=== PATIENT | female | born 2000 | race African-American/Black ===

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

== ENCOUNTER 2021-01-03 19:31 | Emergency (ER) | payer OTHER | END 2021-01-03 20:43 | disposition home or self-care (01) | LOC: ERS 19:31 | DX: B35.4 Tinea corporis (principal) | CPT/HCPCS: 99282 ==

== ENCOUNTER 2021-02-06 19:49 | Emergency (ER) | payer MEDICAID, OTHER ==
[2021-02-06] MEDS ORDERED: Dexamethasone 10 MG/ML VIAL ONE (20:47)
[2021-02-07 11:51] LABS: SARS-CoV-2 PCR by NAA Not Detected (NotDetected)
== END 2021-02-06 20:59 | disposition home or self-care (01) ==
LOC: ERS 19:49
DX: B34.9 Viral infection, unspecified (principal); Z20.822 Contact with and (suspected) exposure to COVID-19
CPT/HCPCS: 87081; 87430; 99283; J1100; U0003; U0005

== ENCOUNTER 2021-08-30 16:20 | Emergency (ER) | payer OTHER ==
[2021-08-30] MEDS ORDERED: cefTRIAXone\\ROCEPHIN 500 MG VIAL ONE (16:35)
[2021-08-30] MEDS ORDERED: Lidocaine 1% PF 5 ML VIAL ONE (16:36)
[2021-08-30 16:55] LABS: Bilirubin Negative (Negative); Blood, Urine Negative (Negative); Clarity Clear (Clear); Glucose, Urine (Dipstick) Normal (Negative); Ketone, Urine 60 mg/dL (Negative); Leukocyte Negative Leu/uL (Negative); Nitrite Negative (Negative); Protein, Urine (Dipstick) Negative (Neg-Trace); Specific Gravity, Urine 1.018 (1.002-1.036); Urobilinogen Normal mg/dL (Less than 2)
[2021-08-30 16:57] LABS: Pregnancy Test - Urine (BHCG) Negative (Negative); Pregu Control Background? CLEAR/WHITE (CLR/WHITE); Pregu Control Bar Appear? YES (CONTROL BAR); Specific Gravity 1.018 (1.002-1.036)
[2021-08-31 11:40] LABS: Chlam.trachomatis by PCR,Urine Not Detected (NotDetected)
== END 2021-08-30 17:26 | disposition home or self-care (01) ==
LOC: ERS 16:20
DX: A64 Unspecified sexually transmitted disease (principal)
CPT/HCPCS: 81003; 81025; 87491; 87591; 96372; 99283; J0696

== ENCOUNTER 2021-10-20 17:00 | Emergency (ER) | payer OTHER ==
[2021-10-20 18:50] LABS: Bilirubin Negative (Negative); Blood, Urine Negative (Negative); Clarity Clear (Clear); Glucose, Urine (Dipstick) Normal (Negative); Ketone, Urine Trace mg/dL (Negative); Leukocyte Negative Leu/uL (Negative); Nitrite Negative (Negative); Protein, Urine (Dipstick) Negative (Neg-Trace); Specific Gravity, Urine 1.019 (1.002-1.036); Urobilinogen Normal mg/dL (Less than 2); pH, Urine 5.5 (5.0-9.0)
[2021-10-20 18:51] LABS: Pregnancy Test - Urine (BHCG) Negative (Negative); Pregu Control Background? CLEAR/WHITE (CLR/WHITE); Pregu Control Bar Appear? YES (CONTROL BAR); Specific Gravity 1.019 (1.002-1.036)
[2021-10-20] MEDS ORDERED: cefTRIAXone\\ROCEPHIN 1 GM VIAL ONE (19:12)
[2021-10-20] MEDS ORDERED: Azithromycin 250 MG TAB ONE (19:12)
[2021-10-20] MEDS ORDERED: Lidocaine 1% PF 5 ML VIAL ONE (19:14)
== END 2021-10-20 19:43 | disposition home or self-care (01) ==
LOC: ERS 17:00
DX: N73.9 Female pelvic inflammatory disease, unspecified (principal)
CPT/HCPCS: 81003; 81025; 87081; 96372; 99284; J0696

== ENCOUNTER 2022-11-15 19:46 | Emergency (ER) | payer MEDICAID, OTHER | END 2022-11-15 20:29 | disposition home or self-care (01) | LOC: ERS 19:46 | DX: U07.1 COVID-19 (principal) | CPT/HCPCS: 87635; 99283 ==

== ENCOUNTER 2022-12-08 17:46 | Emergency (ER) | payer OTHER ==
[2022-12-08 18:35] LABS: Bacteria/HPF None Seen HPF (None Seen); Bilirubin Negative (Negative); Blood, Urine Negative (Negative); CAUTI Indications for Culture Dysuria,urgency,freq; Clarity Clear (Clear); Glucose, Urine (Dipstick) Normal (Negative); Ketone, Urine Negative (Negative); Leukocyte Negative Leu/uL (Negative); Nitrite Negative (Negative); Protein, Urine (Dipstick) Negative (Neg-Trace); RBC/HPF 0-3 HPF (0-3); Specific Gravity, Urine 1.021 (1.002-1.036); Urobilinogen Normal mg/dL (Less than 2); WBC/HPF 0-3 HPF (0-3); pH, Urine 5.5 (5.0-9.0)
[2022-12-08 18:37] LABS: Urine Culture Reflex No No
[2022-12-08 20:22] LABS: Specific Gravity 1.021 (1.002-1.036)
[2022-12-08 20:23] LABS: Pregnancy Test - Urine (BHCG) Negative (Negative); Pregu Control Background? CLEAR/WHITE (CLR/WHITE); Pregu Control Bar Appear? YES (CONTROL BAR)
[2022-12-12 07:21] LABS: Chlamydia by PCR, Vaginal Swab *Indeterminate (NotDetected); GC by PCR, Vaginal Swab *Indeterminate (NotDetected)
== END 2022-12-08 21:50 | disposition home or self-care (01) ==
LOC: ERS 17:46
DX: N83.201 Unspecified ovarian cyst, right side (principal)
CPT/HCPCS: 76856; 81001; 81025; 87480; 87491; 87510; 87591; 87660

== ENCOUNTER 2022-12-19 18:46 | Emergency (ER) | payer OTHER ==
[2022-12-19 20:15] LABS: #Eosinphils 0.2 thou/uL (0.0-0.7); #Monocytes 0.6 thou/uL (0.11-0.59); #Neutrophils 3.2 thou/uL (1.40-6.50); %Basophils 0.6 % (0.0-1.0); %Eosinophils 3.4 % (0.0-10.0); %Lymphocytes 37.9 % (21.0-51.0); %Monocytes 9.1 % (0.0-10.0); %Neutrophils 48.7 % (42.0-75.0); Hematocrit 38.8 % (36.0-47.0); Hemoglobin 12.8 g/dL (12.0-16.0); Mean Corpuscular Hemoglobin 26.7 pg (27.0-31.0); Mean Corpuscular Volume 80.8 fl (78.0-98.0); Mean Platelet Volume 10.7 fL (7.4-10.4); Platelet Count 231 10x3/uL (130-400); RBC Distribution Width 14.5 % (11.5-14.5); White Blood Cell (WBC) Count 6.7 10x3/uL (4.8-10.8)
[2022-12-19 20:41] LABS: ALT (SGPT) 23 U/L (8-55); AST (SGOT) 32 U/L (5-34); Albumin 3.9 g/dL (3.5-5.0); Alkaline Phosphatase 60 U/L (40-110); Anion Gap 10 mmol/L (10-20); BUN (Urea Nitrogen) 8 mg/dL (7.0-18.7); Bilirubin, Total 0.3 mg/dL (0.2-1.2); Calc. Creatinine Clearance 0 mL/min (70-130); Calcium 8.9 mg/dL (7.8-10.44); Carbon Dioxide 22 mmol/L (22-29); Chloride 107 mmol/L (98-107); Estimated GFR 109; Globulin 3.1 g/dL (2.4-3.5); Glucose 84 mg/dL (70-105); Potassium 4.4 mmol/L (3.5-5.1); Sodium 135 mmol/L (136-145)
[2022-12-20 00:20] LABS: Bacteria/HPF None Seen HPF (None Seen); Bilirubin Negative (Negative); Blood, Urine Negative (Negative); CAUTI Indications for Culture Dysuria,urgency,freq; Clarity Clear (Clear); Glucose, Urine (Dipstick) Normal (Negative); Ketone, Urine 20 mg/dL (Negative); Leukocyte Negative Leu/uL (Negative); Nitrite Negative (Negative); Protein, Urine (Dipstick) Negative (Neg-Trace); RBC/HPF 0-3 HPF (0-3); Specific Gravity, Urine 1.015 (1.002-1.036); Urobilinogen Normal mg/dL (Less than 2); WBC/HPF 0-3 HPF (0-3)
[2022-12-20 00:39] LABS: Pregnancy Test - Urine (BHCG) Negative (Negative); Pregu Control Background? CLEAR/WHITE (CLR/WHITE); Pregu Control Bar Appear? YES (CONTROL BAR); Specific Gravity 1.015 (1.002-1.036); Urine Culture Reflex No No
[2022-12-20] MEDS ORDERED: Lidocaine 1% PF 5 ML VIAL ONE (02:16)
[2022-12-20] MEDS ORDERED: cefTRIAXone (ROCEPHIN) 1 GM VIAL ONE (02:16)
[2022-12-20 22:34] LABS: Chlam.trachomatis by PCR,Urine Not Detected (NotDetected); GC N.gonorrhoeae PCR,UrineVOID Not Detected (NotDetected)
== END 2022-12-20 02:19 | disposition home or self-care (01) ==
LOC: ERS 18:46
DX: N83.201 Unspecified ovarian cyst, right side (principal)
CPT/HCPCS: 36415; 76856; 80053; 81001; 81025; 85025; 87491; 87591; 96372; J0696

== ENCOUNTER 2023-03-21 15:05 | Emergency (ER) | payer OTHER | END 2023-03-21 17:42 | disposition home or self-care (01) | LOC: ERS 15:05 | DX: S60.042A Contusion of left ring finger without damage to nail, initial encounter (principal); W23.0XXA Caught, crushed, jammed, or pinched between moving objects, initial encounter ==

== ENCOUNTER 2023-04-25 19:39 | Emergency (ER) | payer OTHER | END 2023-04-25 20:05 | disposition home or self-care (01) | LOC: ERS 19:39 | DX: Z00.00 Encounter for general adult medical examination without abnormal findings (principal) | CPT/HCPCS: 99283 ==

== ENCOUNTER 2023-06-13 20:05 | Emergency (ER) | payer OTHER | END 2023-06-13 21:50 | disposition home or self-care (01) | LOC: ERS 20:05 | DX: J02.9 Acute pharyngitis, unspecified (principal) | CPT/HCPCS: 87081; 87430; 99283 ==

== ENCOUNTER 2023-10-05 10:47 | Emergency (ER) | payer OTHER ==
[2023-10-05 11:44] LABS: #Basophils 0.04 10x3/uL (0.0-0.2); %Basophils 0.7 % (0.0-1.0); %Eosinophils 1.8 % (0.0-10.0); %Lymphocytes 32.7 % (21.0-51.0); %Monocytes 10.5 % (0.0-10.0); %Neutrophils 54.1 % (42.0-75.0); Hematocrit 40.4 % (36.0-47.0); Hemoglobin 13.7 g/dL (12.0-16.0); Mean Corpuscular HGB CONC 33.9 g/dL (32.0-36.0); Mean Corpuscular Hemoglobin 26.9 pg (27.0-31.0); Mean Corpuscular Volume 79.4 fL (78.0-98.0); Mean Platelet Volume 10.3 fL (7.4-10.4); Platelet Count 340 10x3/uL (130-400); RBC Distribution Width 13.5 % (11.5-14.5); Red Blood Cell (RBC) Count 5.09 mill/uL (4.20-5.40)
[2023-10-05 12:00] LABS: ALT (SGPT) 21 U/L (8-55); AST (SGOT) 21 U/L (5-34); Albumin 3.9 g/dL (3.5-5.0); Alkaline Phosphatase 69 U/L (40-110); Anion Gap 12 mmol/L (10-20); BUN (Urea Nitrogen) 10 mg/dL (7.0-18.7); Bilirubin, Total 0.8 mg/dL (0.2-1.2); Calc. Creatinine Clearance 0 mL/min (70-130); Calcium 9.4 mg/dL (7.8-10.44); Carbon Dioxide 20 mmol/L (22-29); Chloride 105 mmol/L (98-107); Estimated GFR 110; Globulin 3.7 g/dL (2.4-3.5); Glucose 85 mg/dL (70-105); Potassium 3.9 mmol/L (3.5-5.1); Protein, Total 7.6 g/dL (6.0-8.3); Sodium 133 mmol/L (136-145)
[2023-10-05 12:27] LABS: Bacteria/HPF None Seen HPF (None Seen); Bilirubin Negative (Negative); Blood, Urine Negative (Negative); CAUTI Indications for Culture Pelvic or flank pain; Clarity Clear (Clear); Glucose, Urine (Dipstick) Normal (Negative); Ketone, Urine Negative (Negative); Leukocyte Negative Leu/uL (Negative); Nitrite Negative (Negative); Protein, Urine (Dipstick) 10 mg/dL (Neg-Trace); RBC/HPF 0-3 HPF (0-3); Specific Gravity, Urine 1.021 (1.002-1.036); Urobilinogen Normal mg/dL (Less than 2); pH, Urine 5.5 (5.0-9.0)
[2023-10-05 12:43] LABS: Pregnancy Test - Urine (BHCG) Negative (Negative); Urine Culture Reflex No No
[2023-10-05 12:44] LABS: Pregu Control Background? CLEAR/WHITE (CLR/WHITE); Pregu Control Bar Appear? YES (CONTROL BAR); Specific Gravity 1.021 (1.002-1.036)
[2023-10-06 20:32] LABS: Chlamydia by PCR, Vaginal Swab Not Detected (NotDetected); GC by PCR, Vaginal Swab Not Detected (NotDetected); Tric.vaginalis PCR,Vaginal Sw DETECTED (NotDetected)
== END 2023-10-05 14:05 | disposition home or self-care (01) ==
LOC: ERS 10:47
DX: N76.0 Acute vaginitis (principal); B96.89 Other specified bacterial agents as the cause of diseases classified elsewhere
CPT/HCPCS: 36415; 80053; 81001; 81025; 85025; 87480; 87491; 87510; 87591; 87660; 87661; 99284